=== PATIENT | male | born 1965 | race Two or more races ===

== ENCOUNTER 2017-03-12 18:37 | Emergency (ER) | payer SELFPAY ==
[~2017-03-12] VITALS: Ht 175.3 cm; Wt 62.1 kg
[2017-03-12 20:46] VITALS: BP 156/101
[2017-03-12] MEDS ORDERED: traMADol HCL 50 MG TAB PO ONE (21:15)
== END 2017-03-12 21:45 | disposition home or self-care (01) ==
LOC: ER 18:46
DX: S30.22XA Contusion of scrotum and testes, initial encounter (principal); W22.8XXA Striking against or struck by other objects, initial encounter; Y93.89 Activity, other specified; Y99.8 Other external cause status; Y92.89 Other specified places as the place of occurrence of the external cause
CPT/HCPCS: 76870